=== PATIENT | male | born 1955 | race Caucasian/White ===

== ENCOUNTER 2019-06-11 00:18 | Day surgery (SDC) | payer MEDICARE, OTHER, SELFPAY ==
[2019-06-05 11:04] VITALS: BMI 26.1
[2019-06-11 07:46] VITALS: BP 125/71; PULSE 81; RESP 18; O2SAT 100; BMI 26.4
--- NOTE | 2019-06-11 08:05 | WPDANESEPPF ---
Anes - Initial Pre Proc Eval Procedure: Operation Date: 06/11/19 08:30 Proposed Procedures p Colonoscopy - Mack Flor MD Date/Time: 06/11/19 08:05 Surgeon: Mack Flor MD Pre Op Diagnosis: Ulcerative Colitis Patient Data Age: 64 Gender: M Height: 1.73 m Weight: 78.7 kg Last Vital Signs Pulse 81 06/11/19 07:46 Resp 18 06/11/19 07:46 BP 125/71 06/11/19 07:46 Pulse Ox 100 06/11/19 07:46 Allergies Allergy/AdvReac Type Severity Reaction Status Date / Time cefdinir Allergy Mild Nausea Verified 06/11/19 07:43 Home Medications Medication Instructions Recorded Confirmed Type rivaroxaban 20 mg tablet 20 mg PO QPM #30 tablet 03/03/19 06/11/19 Rx lisinopril 10 mg PO DAILY 06/05/19 06/11/19 History mesalamine 4.8 g PO DAILY 06/05/19 06/11/19 History Patient hx anesthesia problems: none Family hx anesthesia problems: none [facility] Past Medical History Medical History (Updated 06/11/19 @ 08:05 by Pawel Chan DO) CVA (cerebral vascular accident) 2014 - aphasia DVT (deep venous thrombosis) Hyperlipidemia Hypertension Ulcerative colitis Family History Family History (Updated 01/08/18 @ 17:24 by DOCTOR UNKNOWN) Sibling Diabetes mellitus Father Hypertension Family history of cardiovascular disease Family history of malignant neoplasm Mother Hypertension Diabetes mellitus Social History Social History Smoking status: Never smoker Alcohol intake: current Gender identity (if verbalized by the patient): Male Anes - Eval Final PreProcedure Day of Procedure 06/11/19 08:05 Patient weight: overweight Heart: regular rate and rhythm Lungs: clear to auscultation and normal air movement Airway: Mallampati scale class II Neurological: alert and oriented Last oral intake: >/= 8 hours ASA classification: III Emergent: no Anesthetic plan: proceed Anesthesia type and monitoring: general GIVS and standard monitoring Informed Consent: The patient's anesthetic plan and its attendant risks and benefits were discussed with the patient/family/POA. Questions were solicited and answers provided to the satisfaction of the patient/family/POA.
[2019-06-11] MEDS: LACTATED RINGERS 1,000 ML 150 ML IV CONT (08:12)
--- NOTE | 2019-06-11 08:36 | P.CONGI_ITS ---
Assessment and Plan Additional Plan This is a 64-year-old white male patient seen in evaluation at the request Dr. Marcus Lan. Patient presents for screening colonoscopy. Patient has a history of ulcerative colitis diagnosed in 2010. He has done well with current weight appetite bowel movements normal. Previously on Lialda 4.8 g p.o. daily this has been decreased to2.8g p.o. daily. Patient states his weight appetite bowel movements are normal. He denies diarrhea. He denies pain. He denies bleeding. Patient reports a perianal abscess treated 1 year ago. By surgery. Family history is noncontributory. Past medical history is significant for a CVA with good recovery. He remains on Xarelto subsequently. He has a history of hypertension treated with lisinopril. Medications include Lialda, Xarelto, lisinopril no known medical allergies. Physical exam reveals patient to be alert. Vital signs stable. HEENT exam unremarkable. Lungs are clear to auscultation and percussion. Heart is without murmur or extra sounds. Abdominal exam bowel sounds present soft nontender with no organomegaly. Digital external rectal exam normal. Impression 1. Ulcerative colitis. Clinically appears be in remission. Plan is for screening colonoscopy every 5 years. Dose of Lialda will be decreased to2.4g p.o. daily. 2. History of diverticulitis. Now resolved. This occurred in 2018. 3. History of CVA. Clinically stable is had good recovery 4. Xarelto anticoagulation. of this will be held briefly prior to colonoscopy. Colonoscopy is suggest now and at 5 year intervals. GI Consult Note Consult date/time: 06/11/19 08:36 HPI: Juliocesar Schmidt is a 64 year old male [facility] Past Medical History Medical History (Updated 06/11/19 @ 08:05 by Pawel Chan DO) CVA (cerebral vascular accident) 2014 - aphasia DVT (deep venous thrombosis) Hyperlipidemia Hypertension Ulcerative colitis Family History Family History (Updated 01/08/18 @ 17:24 by DOCTOR UNKNOWN) Sibling Diabetes mellitus Father Hypertension Family history of cardiovascular disease Family history of malignant neoplasm Mother Hypertension Diabetes mellitus Social History Social History Smoking status: Never smoker Alcohol intake: current Gender identity (if verbalized by the patient): Male Meds Home Medications and Allergies Home Medications Medication Instructions Recorded Confirmed Type rivaroxaban 20 mg tablet 20 mg PO QPM #30 tablet 03/03/19 06/11/19 Rx lisinopril 10 mg PO DAILY 06/05/19 06/11/19 History mesalamine 4.8 g PO DAILY 06/05/19 06/11/19 History Allergies Allergy/AdvReac Type Severity Reaction Status Date / Time cefdinir Allergy Mild Nausea Verified 06/11/19 07:43 Vital Signs Vital Signs - 24 hr 06/11/19 07:46 Pulse Rate 81 Respiratory Rate 18 Blood Pressure 125/71 Pulse Oximetry 100
[2019-06-11 08:55] VITALS: BP 96/59; PULSE 57; RESP 13; O2SAT 96
[2019-06-11 09:05] VITALS: BP 99/64; PULSE 58; RESP 22; O2SAT 97
[2019-06-11 09:15] VITALS: BP 110/73; PULSE 57; RESP 16; O2SAT 97
== END 2019-06-11 09:39 | disposition home or self-care (01) ==
PROVIDERS: PCP Family Medicine; Visit Provider Internal Medicine Gastroenterology
PROC: 0DJD8ZZ Inspection of Lower Intestinal Tract, Via Natural or Artificial Opening Endoscopic (ICD-10-PCS; CPT 45378; principal; 2019-06-11 08:30)
DX: Z12.11 Encounter for screening for malignant neoplasm of colon (principal); K57.30 Diverticulosis of large intestine without perforation or abscess without bleeding; K64.8 Other hemorrhoids; K51.90 Ulcerative colitis, unspecified, without complications; I10 Essential (primary) hypertension; E78.5 Hyperlipidemia, unspecified; Z86.73 Personal history of transient ischemic attack (TIA), and cerebral infarction without residual deficits; Z86.718 Personal history of other venous thrombosis and embolism; Z79.01 Long term (current) use of anticoagulants
CPT/HCPCS: 45380; 88305; J2704; J7120

== ENCOUNTER 2020-11-24 08:10 | Outpatient (CLI) | payer MEDICARE, SELFPAY ==
--- NOTE | ~2020-11-24 | US_ITS ---
EXAMINATION: US venous doppler [facility] DATE: 11/24/2020 09:07 INDICATION: Left lower limb pain. TECHNIQUE: Grayscale ultrasound images without and with compression and Doppler ultrasound images of the bilateral lower extremity veins were obtained. COMPARISON: Ultrasound 08/15/2015 FINDINGS: The visualized portions of right common femoral vein, profunda (deep) femoral vein, and greater saphe nous vein outflow are patent. There is thrombus in right femoral, popliteal, posterior tibial, and pe roneal veins. The visualized portions of left common femoral vein, profunda femoral vein, femoral vein, popliteal v ein, and greater saphenous vein outflow are patent. There is thrombus in left posterior tibial and pe roneal veins. IMPRESSION: 1. Bilateral deep vein thrombosis. I called this result to Alejandra Snyder. Reviewed, dictated and finalized at location B.
== END 2020-11-24 08:11 | disposition home or self-care (01) ==
PROVIDERS: PCP Family Medicine; Visit Provider Family Medicine
DX: I82.403 Acute embolism and thrombosis of unspecified deep veins of lower extremity, bilateral (principal)
CPT/HCPCS: 93970

== ENCOUNTER → 2022-03-15 09:34 | Outpatient (CLI) | payer MEDICARE, SELFPAY ==
--- NOTE | ~2022-03-15 | XR_ITS ---
XR hip BI 2V w AP pelvis DATE: 03/15/2022 09:50 INDICATION: Right hip and low back pain for 3 to 4 days TECHNIQUE: AP pelvis. AP and lateral views of each hip. COMPARISON: None FINDINGS: There is osteopenia. No pelvic fracture or bone destruction. Normal alignment at the pubic symphysis and sacroiliac joints . No fracture, dislocation, avascular necrosis or bone destruction of either hip. There is mild bilater al hip osteoarthritis. IMPRESSION: Mild bilateral hip osteoarthritis Reviewed, dictated and finalized at location B. [employer]
--- NOTE | ~2022-03-15 | XR_ITS ---
XR lumbar spine 2-3V DATE: 03/15/2022 09:50 INDICATION: Low back pain for 3 to 4 days TECHNIQUE: AP, lateral, coned lateral lumbosacral views COMPARISON: 08/26/2015 CT abdomen pelvis FINDINGS: There is mild anterior wedge compression fracture deformity of L1, which is most likely rec ent. This was not present on 08/26/2015. No other lumbar spine fracture is detected. Mild thoracolumbar levoscoliosis. Normal alignment of the lumbar spine. No spondylolisthesis. L5-S1 interspace is well preserved. Mild degenerative disc disease at L1-2 and L4-5. The sacroiliac joints are intact. IMPRESSION: Likely recent mild L1 compression fracture Reviewed, dictated and finalized at location B. KETTLE TENDER
== END ==
PROVIDERS: PCP Family Medicine; Visit Provider Physician Assistant
DX: M54.50 Low back pain, unspecified (principal); M16.0 Bilateral primary osteoarthritis of hip
CPT/HCPCS: 72100; 73521

== ENCOUNTER 2022-04-21 09:00 | Outpatient (CLI) | payer MEDICARE, SELFPAY ==
--- NOTE | ~2022-04-21 | MR_ITS ---
EXAMINATION: MR lumbar spine wo con DATE: 04/21/2022 09:44 INDICATION: Compression fracture plane and with one month of right-sided low back pain TECHNIQUE: Magnetic resonance imaging (MRI) of the lumbar spine was performed without intravenous con trast. Sequences included sagittal T2-weighted FSE, sagittal T2-weighted FS FSE, sagittal T1-weighted FSE, and axial T2-weighted FSE. COMPARISON: None FINDINGS: 5 degree lumbar levocurvature. Sagittal alignment is normal. Likely relatively recent L1 burst fractu re with mild marrow edema, 60% anterior to central vertebral body height loss and mild vertebral body height loss posteriorly with 4 mm retropulsion along the inferior aspect of the posterior wall. Mini mal fluid extends along the fracture plane which parallels the inferior endplate. Remaining vertebral body heights are normal. Disc desiccation with mild disc height loss at L4-L5 and without significan t disc height loss at T11-T12 and L5-S1. Annular fissure at L5-S1. The conus medullaris terminates at L1-L2. There is normal signal in the caudal spinal cord. Is mild edema in the soft tissues surroundi ng the L1 burst fracture. Paravertebral soft tissues are otherwise unremarkable. The following disc l evels are specifically discussed: T12-L1: The disc does not extend beyond the endplate margin. There is mild left and moderate right fa cet joint osteoarthritis. There is no neural foraminal stenosis. There is no central canal stenosis. L1-L2: The disc does not extend beyond the retropulsed inferior endplate margin which extends 4 mm po steriorly along the midline. There is mild left and moderate right facet joint osteoarthritis. There is mild to moderate left and moderate to severe right neural foraminal stenosis. There is mild centra l canal stenosis including narrowing of the lateral recesses, right greater than left. L2-L3: Disc is minimally bulging. There is moderate bilateral facet joint osteoarthritis. There is mi ld bilateral neural foraminal stenosis. There is no central canal stenosis. L3-L4: Disc is mildly bulging. There is moderate right and severe left facet joint osteoarthritis. Th ere is mild bilateral neural foraminal stenosis. There is mild central canal stenosis. L4-L5: Disc is mildly bulging with annular fissures at the foraminal zones. There is moderate left an d moderate to severe right facet joint osteoarthritis. There is moderate left and mild to moderate ri ght neural foraminal stenosis. There is mild central canal stenosis including mild narrowing of the l eft and right lateral recesses. L5-S1: Disc is mildly bulging with superimposed central annular fissure and small disc extrusion with disc material extending up to 3 mm caudal to the level of the superior endplate of S1. There is shahab re left and moderate to severe right facet joint osteoarthritis. There is moderate left and mild to m oderate right neural foraminal stenosis. There is mild central canal stenosis including mild narrowin g of the left and right lateral recesses. IMPRESSION: 1. Mild lumbar levocurvature and mild spondylosis. 2. Relatively recent-appearing L1 burst fracture with 60% anterior to central vertebral body height l oss and 4 mm retropulsion contributing to mild central canal stenosis and mild to moderate left and m oderate to severe right neural foraminal stenosis. Reviewed, dictated and finalized at location A. LE HRMS CONSULTANT IMPRESSION: 1. Mild lumbar levocurvature and mild spondylosis. 2. Relatively recent-appearing L1 burst fracture with 60% anterior to central v ertebral body height loss and 4 mm retropulsion contributing to mild central ca nal stenosis and mild to moderate left and moderate to severe right neural fora erick stenosis.
== END 2022-04-21 09:01 ==
PROVIDERS: PCP Family Medicine; Visit Provider Family Medicine
DX: S32.010A Wedge compression fracture of first lumbar vertebra, initial encounter for closed fracture (principal); X58.XXXA Exposure to other specified factors, initial encounter; M47.896 Other spondylosis, lumbar region
CPT/HCPCS: 72148

== ENCOUNTER → 2022-06-01 09:57 | Outpatient (CLI) | payer MEDICARE, OTHER, SELFPAY ==
--- NOTE | ~2022-06-01 | DEXA_ITS ---
Bone Density Report Name: POLI LEAL Age: 67 Sex: Male Ethnicity: White Date of : 1955 Indication: parental hip fracture; height loss; inflammatory bowel disease; prior fracture; Referring Provider: CHUCHO SOUZA Study: Bone densitometry was performed. Exam Date: June 01, 2022 Accession number: [id number] Bone Density: Region BMD T-score Z-score Classification AP Spine (L2, L3, L4) 1.028 -0.8 0.1 Normal Femoral Neck (Left) 0.781 -1.1 0.0 Osteopenia Total Hip (Left) 1.041 0.1 0.6 Normal Femoral Neck (Right) 0.830 -0.7 0.4 Normal Total Hip (Right) 1.087 0.4 1.0 Normal Total Hip Mean 1.064 0.3 0.8 Normal World Health Organization criteria for BMD impression classify patients as: Normal (T-score at or above -1.0), Osteopenia (T-score between -1.0 and -2.5), or Osteoporosis (T-score at or below -2.5). 10-year Fracture Risk: FRAX not reported because: Prior hip or vertebral fracture Clinical Information Provided by Patient: Have had a previous hip or vertebral fracture Has had a low trauma fracture Parent has had a hip fracture Has used the following medications: Vitamin D Has the following medical conditions: Inflammatory bowel diseases Patient maximum height was 68 No regular weight bearing exercise Drinks caffeinated beverages Impression: The patient has low bone mass, based on the Left Femoral Neck T-score. The patient has risk factors, including: parental hip fracture, previous fracture. Discussion: INCREASED RISK OF FRACTURE DUE TO HISTORY OF LOW TRAUMA FRACTURE. The patient's previous fracture puts the patient at high risk of a future fracture. In untreated patients, the risk of osteoporotic fracture increases approximately two-fold for each 1.0 SD decrease in T-score. Low bone density is not the only risk factor for fracture; also consider factors such as patient's age, frailty or poor health, risk of falling, risk of injury, previous osteoporotic fracture, family history of osteoporosis, cigarette smoking, low body weight, etc. Not everyone with a low trauma fracture has osteoporosis; osteomalacia and other metabolic bone disorders should also be considered. Patients who have osteoporosis should be evaluated for specific diseases and conditions (secondary causes) that may cause or contribute to bone loss and fracture risk. National Osteoporosis Foundation (NOF) recommends pharmacologic intervention for patients with a prior low trauma hip or vertebral fracture regardless of BMD T-score. The patient should follow a healthful lifestyle (good nutrition with adequate calcium and vitamin D, and appropriate weight-bearing exercise). Follow-Up: Consider a repeat BMD and Vertebral Fracture Assessment (VFA) exam in 2 years or sooner if medically necessary, to reassess this patient's statu
== END ==
PROVIDERS: PCP Family Medicine; Visit Provider Physician Assistant
DX: S32.010A Wedge compression fracture of first lumbar vertebra, initial encounter for closed fracture (principal); X58.XXXA Exposure to other specified factors, initial encounter; M85.852 Other specified disorders of bone density and structure, left thigh
CPT/HCPCS: 77080

== ENCOUNTER 2022-12-14 19:12 | Emergency (ER) | payer MEDICARE, OTHER, SELFPAY ==
--- NOTE | ~2022-12-14 | US_ITS ---
EXAMINATION: US venous doppler LE RT DATE: 12/14/2022 21:52 INDICATION: Right thigh pain. Prior deep venous thrombosis. TECHNIQUE: Grayscale ultrasound images without and with compression and Doppler ultrasound images of the right lower extremity veins were obtained. COMPARISON: None. FINDINGS: The visualized portions of right common femoral vein, profunda (deep) femoral vein, femoral vein, pop liteal vein, peroneal trunk, posterior tibial veins, peroneal veins and greater saphenous vein outflo w are patent. IMPRESSION: 1. No deep venous thrombosis in the right lower limb. Reviewed, dictated and finalized at location A.
[2022-12-14 19:31] VITALS: BP 137/83; PULSE 94; RESP 16; TEMP 36.8; O2SAT 100
--- NOTE | 2022-12-14 20:56 | ED.GENADULT ---
HPI - General Adult General Chief complaint: Extremity Injury, Lower Stated complaint: pain to right posterior thigh - history of DVTs Time Seen by Provider: 12/14/22 20:23 Source: patient Mode of arrival: ambulatory Limitations: no limitations History of Present Illness HPI narrative: This is a 67-year-old male with PMH of DVT, CVA, HTN who presents to the ED with chief complaint of right posterior thigh and knee pain for the past couple of days. Patient reports that he had a recent long car ride from [place] and is concerned for a DVT. He reports that he is on Xarelto but has had a DVT while on Xarelto in the past. Denies leg swelling. Reports the pain is in his upper posterior thigh and occasionally radiates down to the back of the knee. Denies any injuries. Denies any numbness, weakness, fevers, chills. Related Data Home Medications Medication Instructions Recorded Confirmed mesalamine 1.2 gram tablet,delayed 4.8 g PO DAILY 06/05/19 05/08/22 release Allergies Allergy/AdvReac Type Severity Reaction Status Date / Time cefdinir Allergy Mild Nausea Verified 12/14/22 19:13 Review of Systems Review of Systems: All systems as dictated in [facility] Past Medical History Medical History (Updated 12/15/22 @ 00:00 by Chetna Hughes) Compression fracture of L1 vertebra CVA (cerebral vascular accident) 2014 - aphasia DVT (deep venous thrombosis) Hyperlipidemia Hypertension Ulcerative colitis Family History Family History Sibling Diabetes mellitus Father Hypertension Family history of cardiovascular disease Family history of malignant neoplasm Mother Hypertension Diabetes mellitus Social History Social History Social History: Smoking status: Never smoker Second hand tobacco smoke exposure: No Alcohol intake: current Alcohol use details: Occasionally Substance use: never Substance use type: does not use Living arrangements: with family Occupation/Education: retired Gender identity (if verbalized by the patient): Male Sexual Orientation (if Verbalized by the Patient): Straight or Heterosexual Exam Narrative: GENERAL: Well-appearing, well-nourished, and in no acute distress. HEAD: Normocephalic, atraumatic. EYES: PERRLA and EOMI. ENT: Nares clear, no rhinorrhea or epistaxis. Mucous membranes moist. Oropharynx without tonsillar hypertrophy exudate or other lesions. NECK: Supple. No adenopathy or masses. CHEST: No respiratory distress. Clear to auscultation. No wheezes rales or rhonchi HEART: Regular rate and rhythm. No murmur heard. Normal peripheral pulses. ABDOMEN: Soft, nontender, nondistended, normal active bowel sounds. MSK: RLE: He has pain when I stretch the hamstrings muscles on the right side. Pain follows the hamstring distribution from posterior knee to ischial tuberosity. No lower leg edema bilaterally. No calf tenderness. No tenderness throughout the right lower extremity LLE: Benign SKIN: Warm, dry, no rash. NEURO: Alert and oriented x3. No focal deficits. PSYCH: Normal mood and affect. Course Vital Signs Vital signs: Vital Signs Temperature 98.3 F 12/14/22 19:31 Pulse Rate 94 12/14/22 19:31 Respiratory Rate 16 12/14/22 19:31 Blood Pressure 137/83 12/14/22 19:31 Pulse Oximetry 100 12/14/22 19:31 Oxygen Delivery Room Air 12/14/22 19:31 Temperature 98.3 F 12/14/22 19:31 Pulse Rate 78 12/14/22 22:40 Respiratory Rate 17 12/14/22 22:40 Blood Pressure 131/78 12/14/22 22:40 Pulse Oximetry 99 12/14/22 22:40 Oxygen Delivery Room Air 12/14/22 19:31 Medical Decision Making MDM Narrative Medical decision making narrative: This is a 67-year-old male with history of DVTs who is on Xarelto presenting to the ED for chief complaint of right posterior thigh pain and paige
[2022-12-14 22:40] VITALS: BP 131/78; PULSE 78; RESP 17; O2SAT 99
== END 2022-12-14 22:41 | disposition home or self-care (01) ==
PROVIDERS: Emergency Provider Physician Assistant; PCP Family Medicine
DX: M79.651 Pain in right thigh (principal); I10 Essential (primary) hypertension; E78.5 Hyperlipidemia, unspecified; K51.90 Ulcerative colitis, unspecified, without complications; Z86.718 Personal history of other venous thrombosis and embolism; Z86.73 Personal history of transient ischemic attack (TIA), and cerebral infarction without residual deficits; Z79.01 Long term (current) use of anticoagulants
CPT/HCPCS: 93971; 99284

== ENCOUNTER 2023-04-11 11:09 | Outpatient (CLI) | payer MEDICARE, OTHER, SELFPAY ==
--- NOTE | ~2023-04-11 | XR_ITS ---
EXAMINATION: XR lumbar spine min 4V DATE: 04/11/2023 11:54 INDICATION: Low back pain TECHNIQUE: Anteroposterior, lateral, and bilateral oblique views of the lumbar spine, and cone-down l ateral view of the lumbosacral junction were obtained. COMPARISON: 03/15/2022; MRI, 04/21/2022 FINDINGS: Vertebroplasty changes noted at an L1 burst fracture. The vertebral body heights are otherw ise maintained. No additional fracture is identified. There are 2 mm of retrolisthesis of L4 on L5. T here is mild loss of intervertebral disc space height at L4-5 and L5-S1. There is severe facet joint osteoarthritis at L5-S1. Small degenerative osteophytes project from the anterior endplates of multip le vertebral bodies. Multiple pelvic calcifications are seen which may reflect bladder stones. IMPRESSION: 1. Chronic L1 burst fracture with vertebroplasty change. No acute osseous abnormality identified. Mil d to moderate lumbar spondylosis. Reviewed, dictated and finalized at location A. EED CAKE TRIMMER IMPRESSION: 1. Chronic L1 burst fracture with vertebroplasty change. No acute osseous abnor mality identified. Mild to moderate lumbar spondylosis.
== END 2023-04-11 11:10 ==
LOC: MICIMG 11:12
PROVIDERS: PCP Pain Medicine Pain Medicine; Visit Provider Physician Assistant
DX: S32.011D Stable burst fracture of first lumbar vertebra, subsequent encounter for fracture with routine healing (principal); X58.XXXD Exposure to other specified factors, subsequent encounter; M47.896 Other spondylosis, lumbar region
CPT/HCPCS: 72110

== ENCOUNTER → 2023-04-23 09:51 | Outpatient (CLI) | payer MEDICARE, OTHER, SELFPAY ==
--- NOTE | ~2023-04-23 | CT_ITS ---
CT Scan of the Chest without Contrast: Clinical Indication: Chest wall mass Technique: Contiguous sections were acquired throughout the chest without intravenous contrast. Dose reduction technique was used on this scan by utilizing automated exposure control and iterative recon struction technique. The dose-length product (DLP) was 256.19 mGy-cm. Findings: There is no evidence of any significant mediastinal, hilar or axillary lymphadenopathy. Calcified med iastinal lymph nodes are present. Coronary artery calcifications are present. There is no evidence of pleural or pericardial effusion. There is linear right basilar scarring. Several calcified granulomas are present. There is a large, elongated mass in the right posterior paravertebral region, beginning at the T10 [place], extending inferiorly to the L4 level approximately. The mass is mildly heterogeneous, both relat ively hypodense and hyperdense components. It measures up to approximately 6.3 x 4.5 cm in transverse dimensions, by approximately 21 cm in craniocaudal extent. Images through the upper abdomen reveal 1.6 cm left adrenal nodule, indeterminate. Probable hepatic c yst present adjacent to the gallbladder fossa. There is vertebral plana of L1, with vertebroplasty ce ment. There is also severe compression fracture deformity of T5, with suggestion of increased lucency . Impression: 6.3 x 4.5 x 21 cm mass in the posterior right paravertebral region. Diagnostic considerations include neoplasm versus large intramuscular hematoma. Consider pre and postcontrast imaging to evaluate for enhancing soft tissue component. Severe compression deformity of T5, with questionable lucency. Pathologic compression fracture is not excluded. Consider MR of the thoracic spine to further evaluate. Vertebral plana of L1 with vertebroplasty. 1.6 cm adrenal nodule, similar to prior exam from 2018, therefore most likely benign. Reviewed, dictated and finalized at location M. RNATIONAL STUDENT COUNSELOR Impression: 6.3 x 4.5 x 21 cm mass in the posterior right paravertebral region. Diagnostic considerations include neoplasm versus large intramuscular hematoma. Consider p re and postcontrast imaging to evaluate for enhancing soft tissue component. Severe compression deformity of T5, with questionable lucency. Pathologic compr ession fracture is not excluded. Consider MR of the thoracic spine to further e valuate. Vertebral plana of L1 with vertebroplasty. 1.6 cm adrenal nodule, similar to prior exam from 2018, therefore most likely b enign.
--- NOTE | ~2023-04-23 | MR_ITS ---
MRI of the lumbar spine Clinical History: Neuropathy Technique: Axial T2-weighted images, and sagittal T1-weighted, T2-weighted, and and T2 fat-sat images were acquired. COMPARISON: 04/21/2022 Findings: There is chronic severe compression fracture deformity of L1, with vertebroplasty cement pr esent. There is mild diffuse hypointense T1 marrow signal, which could reflect underlying anemia. No focal suspicious bone marrow signal abnormality seen. No other fracture or sublocation seen. Retropulsion of the L1 vertebral body results in moderate canal stenosis and probable mild compressio n of the conus medullaris. There is severe bilateral neural foraminal narrowing at L1-L2 related to r etropulsion. At L2-L3, there is minimal disc bulge with moderate facet arthropathy. No central canal stenosis or n eural foraminal narrowing. At L3-L4, there is minimal disc bulge with moderate facet arthropathy. No central canal stenosis. The re is mild left neural foraminal narrowing. Right neural foramen preserved. At L4-L5, there is minimal disc bulge with moderate facet arthropathy. No central canal stenosis. The re is mild to moderate bilateral neural foraminal narrowing, right worse than left. At L5-S1, there is minimal disc bulge and moderate facet arthropathy. No central canal stenosis. Ther e is moderate bilateral neural foraminal narrowing. In the posterior right paravertebral musculature, there is a 6.2 x 5.0 x 23.2 cm mass. This is extens ively hyperintense on T2-weighted images, though there is heterogeneous T2 hypointense material scatt ered within the anterior the lesion. There are probable several septations present. T1 signal is exte nsive linear relatively hyperintense, with some again T1 hypointense areas within the lesion. Impression: 6.2 x 5.0 x 23.2 cm intramuscular mass in the right posterior paravertebral musculature, as detailed above. Imaging characteristics are most suggestive of extremely large hematoma, although underlying n eoplasm/sarcoma cannot be completely excluded. Consider follow-up pre and postcontrast T1-weighted fa t-sat imaging to further exclude enhancing soft tissue component. Chronic severe: compression fracture with vertebroplasty cement. Mild compression of the conus medullaris at the L1 level related to retropulsion of the L1 vertebral body. Mild to mild/moderate degenerative change in the lumbar spine otherwise. Reviewed, dictated and finalized at location M. [employer] Impression: 6.2 x 5.0 x 23.2 cm intramuscular mass in the right posterior paravertebral mus culature, as detailed above. Imaging characteristics are most suggestive of ext remely large hematoma, although underlying neoplasm/sarcoma cannot be completel y excluded. Consider follow-up pre and postcontrast T1-weighted fat-sat imaging to further exclude enhancing soft tissue component. Chronic severe: compression fracture with vertebroplasty cement. Mild compression of the conus medullaris at the L1 level related to retropulsio n of the L1 vertebral body. Mild to mild/moderate degenerative change in the lumbar spine otherwise.
== END ==
PROVIDERS: PCP Family Medicine; Visit Provider Pain Medicine Pain Medicine
DX: R22.2 Localized swelling, mass and lump, trunk (principal); M48.56XA Collapsed vertebra, not elsewhere classified, lumbar region, initial encounter for fracture; M47.896 Other spondylosis, lumbar region; G95.89 Other specified diseases of spinal cord
CPT/HCPCS: 71250; 72148

== ENCOUNTER 2023-10-08 08:45 | Emergency (ER) | payer MEDICARE, OTHER, SELFPAY ==
--- NOTE | ~2023-10-08 | US_ITS ---
EXAMINATION: US venous doppler [facility] DATE: 10/08/2023 10:15 INDICATION: Left lower limb pain TECHNIQUE: Grayscale ultrasound images without and with compression and Doppler ultrasound images of the left lower extremity veins were obtained. COMPARISON: None. FINDINGS: The visualized portions of left common femoral vein, profunda (deep) femoral vein, femoral vein, popl iteal vein, peroneal veins, posterior tibial veins, gastrocnemius vein and greater saphenous vein out flow are patent. IMPRESSION: 1. No deep venous thrombosis in the left lower limb. Reviewed, dictated and finalized at location B.
[2023-10-08 08:48] VITALS: BP 131/84; PULSE 110; RESP 16; TEMP 36.9; O2SAT 99
--- NOTE | 2023-10-08 09:04 | ED.LOWEXIN ---
HPI - Extremity Injury (Lower) General Chief Complaint: Extremity Injury, Lower Stated Complaint: Left leg pain after walking dogs Saturday Time Seen by Provider: 10/08/23 08:49 History of Present Illness HPI Narrative: 68-year-old male history of DVT, CVA, hypertension, is anticoagulated with Xarelto who presents to the emergency room for evaluation of left knee pain. patient states he had a bone marrow biopsy from his left hip 8 days ago. Patient states on Saturday he was walking his dogs, and being experiencing pain behind his left knee the radiated up into his hip. States the pain is worse with ambulation and standing. Patient states he took Tylenol a couple of years with no improvement of pain. Patient expresses concern that he may have another DVT. denies injury or trauma shortness of breath. Related Data Home Medications Medication Instructions Recorded Confirmed acidophilus 100 million 1 cap PO DAILY 10/08/23 10/08/23 cell-pectin, citrus 10 mg capsule acyclovir 400 mg tablet 400 mg PO BID 10/08/23 10/08/23 amlodipine 5 mg tablet 5 mg PO DAILY 10/08/23 10/08/23 ferrous sulfate 325 mg (65 mg 325 mg PO TID 10/08/23 10/08/23 iron) tablet mesalamine 1.2 gram tablet,delayed 2.4 g PO DAILY 10/08/23 release ondansetron HCl 8 mg tablet 8 mg PO PRN PRN nausea 10/08/23 10/08/23 prochlorperazine maleate 10 mg 10 mg PO Q6H PRN Nausea And 10/08/23 10/08/23 tablet Vomiting Allergies Allergy/AdvReac Type Severity Reaction Status Date / Time cefdinir Allergy Mild Nausea Verified 10/08/23 08:53 Review of Systems Review of Systems: ROS unremarkable except for noted in HPI PMFSH Past Medical History Medical History Antiphospholipid syndrome Compression fracture of L1 vertebra CVA (cerebral vascular accident) 2014 - aphasia DVT (deep venous thrombosis) Hyperlipidemia Hypertension Multiple myeloma Ulcerative colitis Family History Family History Sibling Diabetes mellitus Father Hypertension Family history of cardiovascular disease Family history of malignant neoplasm Mother Hypertension Diabetes mellitus Social History Social History Social History: Smoking status: Never smoker Second hand tobacco smoke exposure: No Alcohol intake: current Alcohol use details: Occasionally Substance use: never Substance use type: does not use Living arrangements: with family Occupation/Education: retired Gender identity (if verbalized by the patient): Male Sexual Orientation (if Verbalized by the Patient): Straight or Heterosexual Exam Narrative: GENERAL: Well-appearing, well-nourished, no physical limitations, and in no acute distress. HEAD: Normocephalic, atraumatic. EYES: Conjunctivae normal, PERRLA and EOMI. CHEST: Clear to auscultation. No respiratory distress. No wheezes rales or rhonchi. HEART: Regular rate and rhythm. No murmur heard. Normal peripheral pulses. EXTREMITIES: Left leg: No bony tenderness/abnormality. FROM of knee and hip. No calf tenderness, negative Cheo's sign. = calf measurements. Tenderness over his left hip SKIN: Warm, dry, no rash. No noted wounds NEURO: No focal deficits. Alert and oriented x3. MAEW. CN's II-XI intact bilaterally, PSYCH: Cooperative. Normal mood and affect. Course Vital Signs Vital signs: Vital Signs Temperature 36.9 C 10/08/23 08:48 Pulse Rate 110 H 10/08/23 08:48 Respiratory Rate 16 10/08/23 08:48 Blood Pressure 131/84 10/08/23 08:48 Pulse Oximetry 99 10/08/23 08:48 Oxygen Delivery Room Air 10/08/23 08:48 Temperature 36.9 C 10/08/23 08:48 Pulse Rate 110 H 10/08/23 08:48 Respiratory Rate 16 10/08/23 08:48 Blood Pressure 131/84 10/08/23 08:48 Pulse Oximetry 99 10/08/23 08:48 Oxygen Delivery Room Air
[2023-10-08 09:44] LABS: D Dimer 3.19 ug/mL (<0.48)
[2023-10-08 10:47] VITALS: RESP 18
== END 2023-10-08 10:48 | disposition home or self-care (01) ==
PROVIDERS: Emergency Provider Nurse Practitioner Family; PCP Family Medicine
DX: M79.605 Pain in left leg (principal); C90.00 Multiple myeloma not having achieved remission; I69.920 Aphasia following unspecified cerebrovascular disease; I10 Essential (primary) hypertension; E78.5 Hyperlipidemia, unspecified; D68.61 Antiphospholipid syndrome; K51.90 Ulcerative colitis, unspecified, without complications; Z86.718 Personal history of other venous thrombosis and embolism; Z79.01 Long term (current) use of anticoagulants
CPT/HCPCS: 36415; 85380; 93971; 99284